=== PATIENT | female | born 1960 | race Caucasian/White ===

== ENCOUNTER 2017-10-07 14:49 | Emergency (ER) | payer OTHER ==
[~2017-10-07] VITALS: Ht 172.7 cm; Wt 140.0 kg
[~2017-10-07 14:49] MED LIST: ALPR.25 PO; ASPI81TA82 PO; CETI10 PO; DYAZ37.57 PO; GABA600T PO; HUMA100I3 SC; LANTUS2P SC; LISI-360 PO; LOVA40TA PO; METF-324 PO; PROT40TA PO; SERT-132 PO; [UNRECOGNIZED DRUG - OTHER] SQ; [UNRECOGNIZED DRUG - SUPPLY]
[2017-10-07 14:55] VITALS: BP 189/79; PULSE 81; RESP 16; TEMP 98.6; O2SAT 95
[2017-10-07] MEDS ORDERED: DIPHTH/TETANUS/ACEL PERTUSSIS (BOOSTER) 0.5 ML VIAL/PFS IM ONE (15:15)
[2017-10-07] MEDS ORDERED: GEMF600T PO (15:15)
[2017-10-07] MEDS ORDERED: IBUPROFEN 600 MG TAB PO ONE (15:15)
[2017-10-07] MEDS ORDERED: HUMALOG SQ (15:15)
[2017-10-07] MEDS ORDERED: DOXYCYCLINE HYCLATE 100 MG TAB PO ONE (15:15)
[2017-10-07] MEDS ORDERED: IBUP-232 PO (15:16)
[2017-10-07] MEDS ORDERED: CLIN300C5 PO (15:16)
--- NOTE | 2017-10-07 15:16 | PD ---
HPI Chief Complaint: Skin Problem Time Seen by Provider: 15:00 Travel History International Travel<30 days: No Contact w/Intl Traveler<30days: No Traveled to known affect area: No History of Present Illness HPI Patient is a 57-year-old female who presents to emergency room with complaints of right-sided gluteal abscess. Patient reports that she initially noticed a pimple to her right buttocks 5 days ago, she reports that this pimple grew in size, reports extreme pain with sitting. Patient reports no fever or chills, reports that she is concerned that the pimple is getting worse. Patient reports that tetanus is not up-to-date. PFSH Past Medical History Bipolar Disorder: Yes Anxiety: Yes Depression: Yes Heart Rhythm Problems: Yes (HEART MURMUR) Cardiac Catheterization: Yes High Cholesterol: Yes Diabetes: Yes (IDDM) Hypertension: Yes Tubal Ligation: Yes Past Surgical History Appendectomy: Yes Cholecystectomy: Yes Tonsillectomy: Yes Social History Alcohol Use: No Tobacco Use: No Substance Use: No Allergies-Medications (Allergen,Severity, Reaction): Coded Allergies: morphine (Unverified Allergy, Severe, DIZZINESS, 10/07/17) penicillin G (Unverified Allergy, Severe, HIVES, THROAT SWELLING, 10/07/17 ) Reported Meds & Prescriptions Reported Meds & Active Scripts Active Ibuprofen 600 Mg Tab 600 Mg PO Q6H PRN Clindamycin (Clindamycin HCl) 300 Mg Cap 300 Mg PO Q6H 10 Days [BD Ultra Fine Pen] Units SQ QID Gabapentin 600 Mg Tab 600 Mg PO TID 30 Days Lovastatin 40 Mg Tab 40 Mg PO HS [truetest test strips] Strips QID Lisinopril 10 mg (Lisinopril) 10 Mg Tab 10 Mg PO DAILY Dyazide (Triamterene/HCTZ) 37.5 Mg/25 Mg Cap 1 Tab PO DAILY Lantus (Insulin Glargine) 100 Units/Ml Inj 74 Unit SC DIRECTED take 76 units in AM and 74 in PM. Reported Gemfibrozil 600 Mg Tab 600 Mg PO BIDAC Take 30 minutes prior to breakfast and dinner. Humalog Inj (Insulin Human Lispro) 1,000 Unit/10 Ml Vial 30 Units SQ TIDAC Review of Systems General / Constitutional: No: Fever, Chills Eyes: No: Visual changes HENT: No: Headaches Cardiovascular: No: Chest Pain or Discomfort Respiratory: No: Shortness of Breath Gastrointestinal: No: Abdominal Pain Genitourinary: No: Dysuria Musculoskeletal: No: Pain Skin: Positive Other (abscess to right buttochs), No Rash Neurologic: No: Weakness Psychiatric: No: Depression Endocrine: No: Polydipsia Hematologic/Lymphatic: No: Easy Bruising Physical Exam Narrative GENERAL: NAD SKIN: Focused skin assessment warm/dry. Patient with 4cm x 4cm abscess to right buttochs with no areas of drainage or fluctuance HEAD: Atraumatic. Normocephalic. EYES: Pupils equal and round. No scleral icterus. No injection or drainage. ENT: No nasal bleeding or discharge. Mucous membranes pink and moist. NECK: Trachea midline. No JVD. CARDIOVASCULAR: Regular rate and rhythm. No murmur appreciated. RESPIRATORY: No accessory muscle use. Clear to auscultation. Breath sounds equal bilaterally. GASTROINTESTINAL: Abdomen soft, non-tender, nondistended. Hepatic and splenic margins not palpable. MUSCULOSKELETAL: No obvious deformities. No clubbing. No cyanosis. No edema. PSYCHIATRIC: Appropriate mood and affect; insight and judgment normal. Data Data Last Documented VS Vital Signs Date Time Temp Pulse Resp B/P (MAP) Pulse Ox O2 Delivery O2 Flow Rate FiO2 10/07/17 14:55 98.6 81 16 189/79 (115) 95 Orders Orders Doxycycline (Vibratab) (10/07/17 15:15) [id number] (Booster) Inj (Boostrix (10/07/17 15:15) Ibuprofen (Motrin) (10/07/17 15:15) [facility] Medical Decision Making Medical Screen Exam Complete: Yes Emergency Medical Condition: Yes Medical Record Reviewed: Yes Interpretation(s) Vital Signs Date Time Temp Pulse Resp B/P (MAP) Pulse Ox O2 Delivery O2 Flow Rate FiO2 10/07/17 14:55 98.6 81 16 189/79 (115) 95 Differential Diagnosis Abscess Narrative Course Patient is a 57-year-old female with right sided nonfluctuant gluteal abscess. Discussed need for warm compresses to the area as it will need to come to head. Will start patient on antibiotics, discussed need for her to return to the emergency with 48 hours for possible I&D. Patient will return to the emergency room if symptoms worsened or progressed. Patient's tetanus was updated while in the emergency room today Diagnosis Primary Impression: Abscess, gluteal, right Patient Instructions: General Instructions Additional Instructions: Please take all antibiotics prescribed, please eat plenty of yogurt or take probiotics with your antibiotics Apply warm compresses to abscess Return to the emergency room if symptoms worsen or progress or if you develops fevers or chills Return to ER in 2 days for re-evaluation of abscess and possibly I&D Med/Other Pt SpecificInfo: Prescription(s) given Scripts Ibuprofen (Ibuprofen) 600 Mg Tab 600 MG PO Q6H Y for Pain/Inflammation, #40 TAB 0 Refills Prov: Isabelle Daugherty DO 10/07/17 Clindamycin (Clindamycin) 300 Mg Cap 300 MG PO Q6H for Infection for 10 Days, #40 CAP 0 Refills Prov: Isabelle Daugherty DO 10/07/17 Disposition: 01 DISCHARGE HOME Condition: Stable Isabelle Daugherty DO Oct 07, 2017 15:16
[2017-10-07] MEDS ORDERED: TETANUS/DIPHTHERIA TOXOID ADULT 0.5 ML VIAL IM ONE (15:30)
== END 2017-10-07 15:42 | disposition home or self-care (01) ==
LOC: PHED 14:49
DX: L02.31 Cutaneous abscess of buttock (principal); Z23 Encounter for immunization
CPT/HCPCS: 90471; 90714

== ENCOUNTER 2017-10-09 10:43 | Emergency (ER) | payer OTHER ==
[~2017-10-09] VITALS: Ht 172.7 cm; Wt 140.0 kg
[~2017-10-09 10:43] MED LIST changes: -ALPR.25 PO; -ASPI81TA82 PO; -CETI10 PO; +CLIN300C5 PO; +GEMF600T PO; -HUMA100I3 SC; +HUMALOG SQ; +IBUP-232 PO; -METF-324 PO; -PROT40TA PO; -SERT-132 PO
[2017-10-09 10:46] VITALS: BP 167/92; PULSE 89; RESP 16; TEMP 98.9; O2SAT 95
[2017-10-09] MEDS ORDERED: TRIA37.53 PO (11:04)
[2017-10-09] MEDS ORDERED: LISI10TA3 PO (11:04)
[2017-10-09] MEDS ORDERED: GABA600T PO (11:04)
[2017-10-09] MEDS ORDERED: LANTUS2P SQ (11:04)
[2017-10-09] MEDS ORDERED: LOVA40TA PO (11:04)
--- NOTE | 2017-10-09 11:21 | PD ---
HPI Chief Complaint: Skin Problem Time Seen by Provider: 11:01 Travel History International Travel<30 days: No Contact w/Intl Traveler<30days: No Traveled to known affect area: No History of Present Illness HPI 57-year-old female here for recheck of abscess to her right gluteal. Patient was seen on 10/07/17 and started on clindamycin. The abscess was not incised at the time. She reports she has been taking the medication as directed and apply warm compresses. She reports the area is decreasing in size and she believes her symptoms are improving. She denies fever, chills, increasing pain. PFSH Past Medical History Bipolar Disorder: Yes Anxiety: Yes Depression: Yes Heart Rhythm Problems: Yes (HEART MURMUR) Cardiac Catheterization: Yes High Cholesterol: Yes Diabetes: Yes (IDDM) Patient Takes Glucophage: No Diminished Hearing: No Hypertension: Yes ?: Not Tubal Ligation: Yes Past Surgical History Appendectomy: Yes Cholecystectomy: Yes Tonsillectomy: Yes Social History Alcohol Use: No Tobacco Use: No Substance Use: No Allergies-Medications (Allergen,Severity, Reaction): Coded Allergies: morphine (Unverified Allergy, Severe, DIZZINESS, 10/09/17) penicillin G (Unverified Allergy, Severe, HIVES, THROAT SWELLING, 10/09/17 ) Reported Meds & Prescriptions Reported Meds & Active Scripts Active Ibuprofen 600 Mg Tab 600 Mg PO Q6H PRN Clindamycin (Clindamycin HCl) 300 Mg Cap 300 Mg PO Q6H 10 Days [BD Ultra Fine Pen] Units SQ QID [truetest test strips] Strips QID Reported Triamterene-Hydrochlorothiazide 37.5-25 Mg Cap 1 Cap PO DAILY Lovastatin 40 Mg Tab 40 Mg PO DAILY Lisinopril 10 Mg Tab 10 Mg PO DAILY Lantus Inj (Insulin Glargine) 1,000 Unit/10 Ml Vial 74 Units SQ DIRECTED Gabapentin 600 Mg Tab 600 Mg PO TID Gemfibrozil 600 Mg Tab 600 Mg PO BIDAC Take 30 minutes prior to breakfast and dinner. Humalog Inj (Insulin Human Lispro) 1,000 Unit/10 Ml Vial 30 Units SQ TIDAC Review of Systems Except as stated in HPI: all other systems reviewed are Neg Physical Exam Narrative GENERAL: Well-nourished, well-developed patient. SKIN: Focused skin assessment warm/dry. 3.5 centimeter area of erythema and induration to the right gluteal. There is a central scab. There is no drainage. There is no fluctuance. HEAD: Normocephalic. EYES: No scleral icterus. No injection or drainage. NECK: Supple, trachea midline. No JVD or lymphadenopathy. CARDIOVASCULAR: Regular rate and rhythm without murmurs, gallops, or rubs. RESPIRATORY: Breath sounds equal bilaterally. No accessory muscle use. GASTROINTESTINAL: Abdomen soft, non-tender, nondistended. Data Data Last Documented VS Vital Signs Date Time Temp Pulse Resp B/P (MAP) Pulse Ox O2 Delivery O2 Flow Rate FiO2 10/09/17 10:46 98.9 89 16 167/92 (117) 95 MDM Medical Decision Making Medical Screen Exam Complete: Yes Emergency Medical Condition: Yes Differential Diagnosis Abscess, cellulitis, wound recheck Narrative Course 57-year-old female here for abscess recheck. She reports her symptoms are improving and the area is decreasing in size. On exam she has a 3-1/2 cm area of induration to the right gluteal without fluctuance. The area has a central scab. There is no active drainage. I do not believe the area needs to be opened. She is instructed to continue the antibiotics and warm compresses and follow up with her doctor. Diagnosis Primary Impression: Abscess Referrals: [facility] Additional Instructions: Continue the antibiotics as directed. Continue to apply warm compresses as discussed. Disposition: 01 DISCHARGE HOME Condition: Stable eDna Robert Oct 09, 2017 11:21
== END 2017-10-09 11:35 | disposition home or self-care (01) ==
LOC: PHEFT 10:43
DX: L02.31 Cutaneous abscess of buttock (principal)
CPT/HCPCS: 99281